=== PATIENT | male | born 1945 | race Asian ===

== ENCOUNTER 2017-06-25 23:28 | Emergency (ER) | payer OTHER ==
[~2017-06-25] VITALS: Ht 167.6 cm; Wt 65.8 kg
[~2017-06-25 23:28] MED LIST: AMLODIPINE PO; MECLIZINE 25 MG25 M1 PO; PHENERGAN 25 MG25 M1 PO; PRILOSEC40 MG PO; TOPROL XL100 MG PO; TRICOR145 MG PO
[2017-06-26] MEDS ORDERED: PREDNISONE50 MG PO (00:25)
[2017-06-26 00:38] VITALS: BP 144/79
== END 2017-06-26 00:57 | disposition home or self-care (01) ==
LOC: ER 23:28
DX: T78.40XA Allergy, unspecified, initial encounter (principal); X58.XXXA Exposure to other specified factors, initial encounter

== ENCOUNTER 2018-11-06 01:02 | Emergency (ER) | payer OTHER ==
[~2018-11-06] VITALS: Ht 167.6 cm; Wt 65.3 kg
--- NOTE | ~2018-11-06 | EKG ---
[address] [place] [address] ELECTROCARDIOGRAM REPORT Name: EVELIA STEELE [facility] [id number] Admission: 11/06/18 Attend Phys: Discharge: 11/06/18 Date of : 45 Report #: [id number] THIS REPORT FOR: //name// [facility] ED Test Date: 2018-11-06 Test Time: 01:29:52 Pat Name: EVELIA STEELE Department: Room: Gender: Game Developer: SANJU : 1945 Requested By: Дмитрий Mccray Order Number: [id number] MD: Yusuf Santiago Measurements Intervals [place] Rate: 71 P: 22 KS: 176 QRS: -34 QRSD: 98 T: 32 QT: 374 QTc: 407 Interpretive Statements Sinus rhythm Probable left atrial enlargement RSR' in V1 or V2, right VCD Left ventricular hypertrophy Nonspecific ST segment abnormalities Compared to ECG 05/19/2011 01:10:09 No significant change Electronically Signed On 11-06-2018 9:18:28 [employer] by Yusuf Santiago [email or web address] <ELECTRONICALLY SIGNED> By: Yusuf Santiago MD 11/06/18917 0129 0129 Yusuf Santiago MD /JACQUIE
[~2018-11-06 01:02] MED LIST changes: +PREDNISONE50 MG PO
[2018-11-06 01:47] LABS: HEMATOCRIT 44.9 % (42.0-52.0); HEMOGLOBIN 15.2 gm/dL (14.0-18.0); MCHC 33.9 g/dL (28.0-37.0); MCV 97.4 fL (80.0-100.0); RBC 4.61 mil/uL (4.50-6.00); RDW 12.6 % (10.5-14.5); WBC 7.8 thou/uL (4.0-11.0)
[2018-11-06 01:52] LABS: URINE BILIRUBIN NEGATIVE (Negative); URINE BLOOD NEGATIVE (Negative); URINE CLARITY CLEAR; URINE COLOR YELLOW; URINE GLUCOSE-RANDOM* NEGATIVE (Negative); URINE KETONES NEGATIVE (Negative); URINE LEUKOCYTES-REFLEX NEGATIVE (Negative); URINE NITRITE-REFLEX NEGATIVE (Negative); URINE PROTEIN (DIPSTICK) NEGATIVE (Negative); URINE SPECIFIC GRAVITY <= 1.005 (1.005-1.035); URINE UROBILINOGEN 0.2 E.U./dl (0.2-1.0)
[2018-11-06] MEDS ORDERED: FLOMAX0.4 MG PO (01:54)
[2018-11-06] MEDS ORDERED: ASPIR 8181 MG PO (01:55)
[2018-11-06 01:56] LABS: ANION GAP 12 mmol/L (7-16); BUN 19 mg/dL (7-18); CALCIUM 9.1 mg/dL (8.5-10.1); CHLORIDE 93 mmol/L (98-107); CO2 27 mmol/L (21-32); CREATININE 1.3 mg/dL (0.7-1.3); GLUCOSE 112 mg/dL (74-106); POTASSIUM 3.4 mmol/L (3.5-5.1); SODIUM 132 mmol/L (136-145)
[2018-11-06] MEDS ORDERED: INDAPAMIDE1.25 MG PO (01:56)
[2018-11-06 02:05] LABS: ALBUMIN 3.5 g/dL (3.4-5.0); SGOT 19 U/L (15-37); SGPT 21 U/L (30-65); TOTAL BILIRUBIN 0.7 mg/dL (<0.1-1.0); TOTAL PROTEIN 7.7 g/dL (6.4-8.2); TROPONIN-I <0.06 ng/mL (<0.06)
[2018-11-06 02:41] VITALS: BP 136/83
== END 2018-11-06 02:42 | disposition home or self-care (01) ==
LOC: ER 01:02
PROVIDERS: Emergency Medicine
DX: I10 Essential (primary) hypertension (principal); E87.6 Hypokalemia; R53.1 Weakness; E78.00 Pure hypercholesterolemia, unspecified; Z90.5 Acquired absence of kidney